=== PATIENT | female | born 1960 | race Caucasian/White ===

== ENCOUNTER 2019-01-01 18:22 | Emergency (ER) | payer BC, MEDICARE ==
[~2019-01-01] VITALS: Ht 160 cm; Wt 70.3 kg
--- NOTE | 2019-01-01 19:33 | PHYS DOC ---
Past History Past Medical History: Asthma, Other Past Surgical History: No Surgical History Alcohol Use: None Drug Use: None Adult General Chief Complaint Chief Complaint: MECHANICAL FALL HPI HPI Patient is a 58 year old female who presents with complaint of abrasions and nasal swelling after being involved in a mechanical fall shortly prior to arrival. Patient states that she was walking in a parking lot when her foot accidentally stepped into a pothole. This caused her to fall forward. She states that she initially landed on her knees and then try to catch herself with her hands. States that her face did bump the parking lot. Notes that she has a bruise to her forehead and has bruising and swelling to her nose. Notes slight abrasions to hands and more significant abrasion to left knee. States that she did not lose consciousness during the fall and has been ambulatory without difficulty since falling. Because of the fall, [facility] and instructed on how to care for her current injuries. Does not currently on blood thinners and denies any significant pain at this time. Review of Systems Review of Systems Constitutional: Denies fever or chills [] Eyes: Denies change in visual acuity, redness, or eye pain [] HENT: Swelling and bruising to nose and forehead[] Respiratory: Denies cough or shortness of breath [] Cardiovascular: Denies chest pain or edema[] GI: Denies abdominal pain, nausea, vomiting, bloody stools or diarrhea [] : Denies dysuria or hematuria [] Musculoskeletal: Denies back pain or joint pain [] Integument: Abrasions to hands and knee[] Neurologic: Denies headache, focal weakness or sensory changes [] All other systems were reviewed and found to be within normal limits, except as documented in this note. Allergies Allergies Allergies Coded Allergies Type Severity Reaction Last Updated Verified Penicillins Allergy Unknown 01/01/19 Yes Physical Exam Physical Exam Constitutional: Well developed, well nourished, no acute distress, non-toxic appearance. [] HENT: Normocephalic, slight abrasion to right frontal scalp, bilateral external ears normal, oropharynx moist, no oral exudates, mild to moderate soft tissue swelling along the bridge of nose with underlying ecchymosis, and nontender to palpation. [] Eyes: PERRLA, EOMI, conjunctiva normal, no discharge. [] Neck: Normal range of motion, no tenderness, supple, no stridor. [] Cardiovascular:Heart rate regular rhythm, no murmur [] Lungs & Thorax: Bilateral breath sounds clear to auscultation [] Abdomen: Bowel sounds normal, soft, no tenderness, no masses, no pulsatile masses. [] Skin: Warm, dry, no erythema, no rash. [] Back: No tenderness, no CVA tenderness. [] Extremities: Superficial abrasion to left knee, unable to discern significant abrasions to hands, no tenderness, no cyanosis, no clubbing, ROM intact, no edema. [] Neurologic: Alert and oriented X 3, normal motor function, normal sensory function, no focal deficits noted. [] Current Patient Data Vital Signs Vital Signs Date Time Temp Pulse Resp B/P (MAP) Pulse Ox O2 Delivery O2 Flow Rate FiO2 01/01/19 18:40 85 20 95 Room Air Lab Results Not performed EKG EKG Not performed[] Radiology/Procedures Radiology/Procedures Not performed[] Course & Med Decision Making Course & Med Decision Making Pertinent Labs and Imaging studies reviewed. (See chart for details) Patient appears well and in no acute distress. Patient's injuries are minor and patient displays no symptoms consistent with concussion. Patient's tetanus booster was updated in the emergency department. Recommended cryotherapy to facial contusions and recommended use of Tylenol and ibuprofen as needed for any pain or discomfort. Recommended follow-up with primary doctor in the next 7-10 days for reevaluation and return to the emergency department for any worsening symptoms. Patient was understanding and in agreement with treatment plan. Dragon Disclaimer Dragon Disclaimer This electronic medical record was generated, in whole or in part, using a voice recognition dictation system. Departure Departure: Impression: Primary Impression: Fall from slip, trip, or stumble Additional Impressions: Facial contusion Contusion, nose Knee abrasion Disposition: 01 HOME, SELF-CARE Condition: IMPROVED Referrals: PCPAMY (PCP) Patient Instructions: RICE - Routine Care for Injuries Additional Instructions: Your examination thankfully shows no external signs of serious injury. It is recommended that you consider applying a cold compress such as an ice pack or gel pack to areas of soreness and swelling such as your nose for 10-15 minutes at least 3 times daily to help reduce swelling. You may take Advil 400-600 mg every 6 hours by mouth as needed for pain. Follow-up with your primary doctor in the next 7-10 days for reevaluation. Return to the emergency department for any worsening symptoms. Problem Qualifiers Primary Impression: Fall from slip, trip, or stumble Encounter type: initial encounter Qualified Codes: W01.0XXA - Fall on same level from slipping, tripping and stumbling without subsequent striking against object, initial encounter Additional Impressions: Facial contusion Encounter type: initial encounter Qualified Codes: S00.83XA - Contusion of other part of head, initial encounter Contusion, nose Encounter type: initial encounter Qualified Codes: S00.33XA - Contusion of nose, initial encounter Knee abrasion Encounter type: initial encounter Laterality: left Qualified Codes: S80.212A - Abrasion, left knee, initial encounter KAMRON PETTY MD Jan 01, 2019 19:33
[2019-01-01 19:40] VITALS: BP 143/75
[2019-01-01] MEDS ORDERED: DIPHTH,PERTUSS(ACELL),TET TOX 0.5 ML DISP.SYRIN. VAX IM ONE (19:45)
== END 2019-01-01 19:47 | disposition home or self-care (01) ==
LOC: ER 18:22
DX: S00.33XA Contusion of nose, initial encounter (principal); S00.83XA Contusion of other part of head, initial encounter; S80.212A Abrasion, left knee, initial encounter; S00.01XA Abrasion of scalp, initial encounter; S60.512A Abrasion of left hand, initial encounter; S60.511A Abrasion of right hand, initial encounter; J45.909 Unspecified asthma, uncomplicated; Z88.0 Allergy status to penicillin; W01.0XXA Fall on same level from slipping, tripping and stumbling without subsequent striking against object, initial encounter; Y93.01 Activity, walking, marching and hiking; Y92.481 Parking lot as the place of occurrence of the external cause; Y99.8 Other external cause status
CPT/HCPCS: 90471; 90715; 99283-25

== ENCOUNTER 2021-10-16 20:10 | Emergency (ER) | payer BC ==
[~2021-10-16] VITALS: Ht 162.6 cm; Wt 64.5 kg
[2021-10-16 20:19] VITALS: BP 138/72
--- NOTE | 2021-10-16 20:28 | PHYS DOC ---
Past History Past Medical History: Asthma, Other Past Surgical History: No Surgical History Alcohol Use: None Drug Use: None General Adult EDM: Chief Complaint: FEVER HPI: HPI: 61-year-old female presents with cough and fever. She started have a cough 2 days ago but has gotten worse today. Patient has a history of asthma for which she is albuterol daily. She has also been taking Tylenol and ibuprofen on a regular basis due to some back pain. The patient noticed that she spiked a fever this afternoon of 101.7F. She decided she should come in for evaluation. The patient is fully vaccinated against COVID-19 and influenza. She got her pneumonia shot in the past. To her knowledge, she has not contracted COVID-19. Review of Systems: Review of Systems: Constitutional: Fever Eyes: Denies change in visual acuity HENT: Denies nasal congestion or sore throat Respiratory: Cough without shortness of breath Cardiovascular: Denies chest pain or edema GI: Denies abdominal pain, nausea, vomiting, bloody stools or diarrhea : Denies dysuria Musculoskeletal: Denies back pain or joint pain Integument: Denies rash Neurologic: Denies headache, focal weakness or sensory changes Endocrine: Denies polyuria or polydipsia Lymphatic: Denies swollen glands Psychiatric: Denies depression or anxiety Allergies: Allergies: Allergies Coded Allergies Type Severity Reaction Last Updated Verified Penicillins Allergy Unknown 01/01/19 Yes Physical Exam: PE: Constitutional: Well developed, well nourished, no acute distress, non-toxic appearance. [] HENT: Normocephalic, atraumatic, bilateral external ears normal, oropharynx moist, no oral exudates, nose normal. [] Eyes: PERRLA, EOMI, conjunctiva normal, no discharge. [] Neck: Normal range of motion, no tenderness, supple, no stridor. [] Cardiovascular: Heart rate regular rhythm, no murmur [] Lungs & Thorax: Coughing. Bilateral breath sounds clear to auscultation [] Abdomen: Bowel sounds normal, soft, no tenderness, no masses, no pulsatile masses. [] Skin: Warm, dry, no erythema, no rash. [] Back: No tenderness, no CVA tenderness. [] Extremities: No tenderness, no cyanosis, no clubbing, ROM intact, no edema. [] Neurologic: Alert and oriented X 3, normal motor function, normal sensory function, no focal deficits noted. [] Psychologic: Affect normal, judgement normal, mood normal. [] Current Patient Data: Vital Signs: Vital Signs Date Time Temp Pulse Resp B/P (MAP) Pulse Ox O2 Delivery O2 Flow Rate FiO2 10/16/21 20:19 101.7 90 20 138/72 (94) 96 Room Air EKG: EKG: [] Radiology/Procedures: Radiology/Procedures: [] Heart Score: C/O Chest Pain: N/A Risk Factors: Risk Factors: DM, Current or recent (<one month) smoker, HTN, HLP, family history of CAD, obesity. Risk Scores: Score 0 - 3: 2.5% MACE over next 6 weeks - Discharge Home Score 4 - 6: 20.3% MACE over next 6 weeks - Admit for Clinical Observation Score 7 - 10: 72.7% MACE over next 6 weeks - Early Invasive Strategies Course & Med Decision Making: Course & Med Decision Making Pertinent Labs and Imaging studies reviewed. (See chart for details) The patient's labs are unremarkable. Her chest x-ray is negative for acute findings. Her urinalysis is negative for infection. Something happened with our rapid COVID and influenza machine. I cannot get those results today. This could be either 1 of those. I given the patient Zofran for her nausea. I will discharge her with a prescription for Zofran and a starter pack. She is stable for discharge at this time. [] Eliezer Disclaimer: Eliezer Disclaimer: This electronic medical record was generated, in whole or in part, using a voice recognition dictation system. Departure Departure: Impression: Primary Impression: Viral URI with cough Disposition: HOME / SELF CARE / HOMELESS Condition: STABLE Referrals: PCP,NO (PCP) Patient Instructions: Upper Respiratory Infection, Adult, [id number] Scripts Ondansetron (ONDANSETRON ODT) 4 Mg Tab.rapdis 1 TAB PO PRN Q6-8HRS PRN for VOMITING, #16 TAB Prov: KAZ ONTIVEROS DO 10/16/21 KAZ ONTIVEROS DO Oct 16, 2021 20:28
[2021-10-16 21:04] LABS: BASO % 0 % (0-3); EOS % 0 % (0-3); HEMATOCRIT 35.5 % (36.0-47.0); HEMOGLOBIN 11.8 g/dL (12.0-15.5); LYMPH # 0.7 x10^3/uL (1.0-4.8); LYMPH % 7 % (24-48); MEAN CORPUSCULAR HEMOGLOBIN 31 pg (25-35); MEAN CORPUSCULAR HGB CONC 33 g/dL (31-37); MEAN CORPUSCULAR VOLUME 92 fL (79-100); MONO % 10 % (0-9); NEUT # 8.5 x10^3uL (1.8-7.7); NEUT % 83 % (31-73); PLATELET COUNT 303 x10^3/uL (140-400); RED BLOOD COUNT 3.86 x10^6/uL (3.50-5.40); RED CELL DISTRIBUTION WIDTH 12.6 % (11.5-14.5); WHITE BLOOD COUNT 10.2 x10^3/uL (4.0-11.0)
[2021-10-16 21:13] LABS: CALCIUM 9.2 mg/dL (8.5-10.1); CREATININE 0.7 mg/dL (0.6-1.0); GFR 85.1; POTASSIUM 3.3 mmol/L (3.5-5.1)
[2021-10-16 21:18] LABS: ALBUMIN 3.6 g/dL (3.4-5.0); ALBUMIN/GLOBULIN RATIO 1.2 (1.0-1.7); TOTAL BILIRUBIN 0.4 mg/dL (0.2-1.0); TOTAL PROTEIN 6.7 g/dL (6.4-8.2)
--- NOTE | 2021-10-16 21:20 | RAD ---
Exam: Chest one view INDICATION: Cough TECHNIQUE: Frontal view of the chest Comparisons: 01/02/2015 FINDINGS: The cardiomediastinal silhouette and pulmonary vessels are within normal limits. The lung and pleural spaces are clear. IMPRESSION: No acute cardiopulmonary process. Electronically signed by: Shiraz Elliott MD (10/16/2021 9:18 PM) LILY
[2021-10-16] MEDS ORDERED: IV NORMAL SALINE 1,000ML 1,000 ML IV ONE (22:00)
[2021-10-16 22:22] LABS: BACTERIA,URINE 0 /HPF (0-FEW); CLARITY,URINE CLEAR; COLOR,URINE YELLOW; GLUCOSE,URINE NEG (NEG); NITRITE,URINE NEG (NEG); RBC,URINE 0 /HPF (0-2); SQUAMOUS EPITHELIAL CELL,UR FEW /LPF; UROBILINOGEN,URINE 0.2 mg/dL (0.2 mg/dL); WBC,URINE 0 /HPF (0-4)
[2021-10-16] MEDS ORDERED: BENZONATATE 100 MG CAPSULE. PO ONE ×2 (22:32→23:00)
[2021-10-16] MEDS ORDERED: ONDA4TAB12 PO (23:44)
[2021-10-17] MEDS ORDERED: ONDANSETRON PF 4 MG/2 ML VIAL. IVP ONE
[2021-10-17] MEDS ORDERED: ACETAMINOPHEN 325 MG TABLET PO ONE
[2021-10-17] MEDS ORDERED: ONDANSETRON 4MG ODT 4TABLET STARTPACK. PO ONE
== END 2021-10-17 00:27 | disposition home or self-care (01) ==
LOC: ER 20:10
DX: J06.9 Acute upper respiratory infection, unspecified (principal); J45.909 Unspecified asthma, uncomplicated; Z20.822 Contact with and (suspected) exposure to COVID-19; Z88.0 Allergy status to penicillin
CPT/HCPCS: 36415; 71045; 80053; 81001; 85025; 96361; 96374; 99284; C9803; J2405; J7030; Q0162; U0003